=== PATIENT | female | born 1995 | race Two or more races ===

== ENCOUNTER 2018-03-03 10:06 | Emergency (ER) | payer OTHER ==
[~2018-03-03] VITALS: Ht 157.5 cm; Wt 54.4 kg
[~2018-03-03 10:06] MED LIST: INTEGRA F CAPS1 EACH PO; LEVAQUIN500 MG PO
[2018-03-03] MEDS ORDERED: ZANAFLEX2 M1 PO (10:45)
[2018-03-03] MEDS ORDERED: KETO10TA2 PO (17:01)
[2018-03-03] MEDS ORDERED: DUI500 PO (17:01)
== END 2018-03-03 17:08 | disposition home or self-care (01) ==
LOC: ER 10:06
DX: N39.0 Urinary tract infection, site not specified (principal); M54.5 Low back pain

== ENCOUNTER 2018-04-16 19:13 | Emergency (ER) | payer OTHER ==
[~2018-04-16] VITALS: Ht 157.5 cm; Wt 54.4 kg
[~2018-04-16 19:13] MED LIST changes: +DUI500 PO; +KETO10TA2 PO; +ZANAFLEX2 M1 PO
== END 2018-04-16 22:44 | disposition home or self-care (01) ==
LOC: ER 19:13
DX: J11.1 Influenza due to unidentified influenza virus with other respiratory manifestations (principal)

== ENCOUNTER 2018-05-01 11:29 | Emergency (ER) | payer OTHER ==
[~2018-05-01] VITALS: Ht 157.5 cm; Wt 54.4 kg
== END 2018-05-01 17:19 | disposition home or self-care (01) ==
LOC: ER 11:29
DX: J11.1 Influenza due to unidentified influenza virus with other respiratory manifestations (principal)

== ENCOUNTER 2018-10-12 20:45 | Emergency (ER) | payer OTHER ==
[~2018-10-12] VITALS: Ht 157.5 cm; Wt 54.4 kg
[2018-10-12] MEDS ORDERED: MOBIC15 MG (20:59)
[2018-10-12] MEDS ORDERED: ZANAFLEX4 MG (21:00)
== END 2018-10-12 22:58 | disposition home or self-care (01) ==
LOC: ER 20:45
DX: M54.16 Radiculopathy, lumbar region (principal)

== ENCOUNTER 2018-11-06 20:43 | Emergency (ER) | payer OTHER ==
[~2018-11-06] VITALS: Ht 157.5 cm; Wt 54.4 kg
[~2018-11-06 20:43] MED LIST changes: +MOBIC15 MG; +ZANAFLEX4 MG
== END 2018-11-07 00:13 | disposition home or self-care (01) ==
LOC: ER 20:43
DX: M54.32 Sciatica, left side (principal)

== ENCOUNTER 2021-08-24 21:10 | Emergency (ER) | payer OTHER ==
[~2021-08-24] VITALS: Ht 157.5 cm; Wt 54.4 kg
[2021-08-25] MEDS ORDERED: BACTRIM 400-801 EACH PO (00:09)
== END 2021-08-25 00:22 | disposition home or self-care (01) ==
LOC: ER 21:10
DX: R39.15 Urgency of urination (principal)

== ENCOUNTER 2021-10-18 14:17 | Emergency (ER) | payer OTHER ==
[~2021-10-18] VITALS: Ht 162.6 cm; Wt 54.4 kg
[~2021-10-18 14:17] MED LIST changes: +BACTRIM 400-801 EACH PO
== END 2021-10-18 23:22 | disposition home or self-care (01) ==
LOC: ER 14:17
DX: J03.90 Acute tonsillitis, unspecified (principal); Z20.822 Contact with and (suspected) exposure to COVID-19

== ENCOUNTER 2022-02-04 20:51 | Emergency (ER) | payer OTHER ==
[~2022-02-04] VITALS: Ht 157.5 cm; Wt 54.4 kg
== END 2022-02-04 22:50 | disposition home or self-care (01) ==
LOC: ER 20:51
DX: R20.2 Paresthesia of skin (principal)

== ENCOUNTER 2022-08-01 09:23 | Emergency (ER) | payer OTHER ==
[~2022-08-01] VITALS: Ht 157.5 cm; Wt 54.4 kg
== END 2022-08-01 15:04 | disposition home or self-care (01) ==
LOC: ER 09:23
DX: N83.209 Unspecified ovarian cyst, unspecified side (principal); R10.30 Lower abdominal pain, unspecified

== ENCOUNTER 2023-05-21 18:30 | Emergency (ER) | payer OTHER ==
[~2023-05-21] VITALS: Ht 162.6 cm; Wt 54.4 kg
== END 2023-05-21 21:59 | disposition home or self-care (01) ==
LOC: ER 18:30
DX: U07.1 COVID-19 (principal)

== ENCOUNTER 2024-10-07 09:11 | Emergency (ER) | payer OTHER ==
[~2024-10-07] VITALS: Ht 157.5 cm; Wt 54.0 kg
[2024-10-07] MEDS ORDERED: KETOROLAC TROMETHAMINE 60 MG VIAL IM ONE (11:00)
[2024-10-07] MEDS ORDERED: DEXAMETHASONE SODIUM PHOSPHATE 4 MG/ML VIAL IM ONE (11:00)
== END 2024-10-07 14:04 | disposition home or self-care (01) ==
LOC: ER 09:11
DX: M77.12 Lateral epicondylitis, left elbow (principal); M79.632 Pain in left forearm

== ENCOUNTER 2025-02-08 12:09 | Emergency (ER) | payer OTHER ==
[~2025-02-08] VITALS: Ht 157.5 cm; Wt 52.2 kg
[2025-02-08] MEDS ORDERED: IRBESARTAN150 MG PO (13:44)
[2025-02-08 15:11] LABS: BASO % 0.5 % (0.1-1.2); EOS # 0.30 (0.04-0.54); EOS % 3.8 % (0.7-7.0); LYMPH # 2.59 (1.18-3.74); LYMPH % 32.7 % (19.3-53.1); MEAN PLATELET VOLUME 9.80 fl (9.4-12.4); MONO # 0.57 (0.24-0.82); MONO % 7.2 % (4.7-12.5); NEUT # 4.40 (1.56-6.13); NEUT % 55.4 % (34.0-71.1); RED CELL DISTRIBUTION WIDTH 12.1 % (11.6-14.4)
[2025-02-08 15:22] LABS: INR 1.05
[2025-02-08 15:39] LABS: ALT/SGPT 18 U/L (12-78); AST/SGOT 13 U/L (15-37); BILIRUBIN TOTAL 0.72 mg/dL (0.3-1.2); BUN CREA RATIO 21 (7.0-25.0); CREATININE SERUM 0.72 mg/dL (0.55-1.02); GFR 94.48; GLOBULINA 3.5 G/DL (2.4-3.5); GLUCOSE FASTING 85 mg/dL (65-100); OSMOLALITY SERUM 281 MOSM/KG (275-295)
[2025-02-08 15:41] LABS: HCG QUANTITATIVE < 1 mUI/mL (1-3)
[2025-02-08] MEDS ORDERED: MEDROLPACK PO (17:58)
== END 2025-02-08 18:12 | disposition home or self-care (01) ==
LOC: ER 12:10
PROVIDERS: General Practice
DX: R29.810 Facial weakness (principal); I10 Essential (primary) hypertension; R20.0 Anesthesia of skin